=== PATIENT | female | born 1955 | race African-American/Black ===

== ENCOUNTER 2019-06-08 12:29 | Emergency (ER) | payer OTHER, SELFPAY ==
--- NOTE | ~2019-06-08 | XR_ITS ---
EXAMINATION: XR chest 2V DATE: 06/08/2019 13:01 INDICATION: Shortness of breath. Difficulty taking a deep breath. TECHNIQUE: frontal and lateral views of the chest were obtained. COMPARISON: None FINDINGS: The lungs are clear with no focal airspace opacities, pulmonary edema, pleural effusion or pneumothor ax. The cardiomediastinal silhouette is normal. Visualized bones and soft tissues are unremarkable. IMPRESSION: 1. No acute cardiopulmonary disease. Reviewed, dictated and finalized at location A.
[2019-06-08 12:45] VITALS: BP 124/73; PULSE 60; RESP 16; TEMP 36.4; O2SAT 100
--- NOTE | 2019-06-08 12:45 | ED.URI ---
HPI - URI/Sore Throat General Chief Complaint: Upper Respiratory Infection Stated Complaint: sore throat/SOB Time Seen by Provider: 06/08/19 12:45 Source: patient and RN notes reviewed History of Present Illness HPI Narrative: Patient is a 64-year-old female that presents the urgent care with complaints of shortness of breath and sore throat. Patient states that started approximately 1 week ago and now she has a hoarse voice. Patient states she has had a mild intermittent cough after taking [id number]-[id number] mucus production medication. Patient is continue taking her Claritin and Flonase as prescribed for seasonal allergies. Patient denies any known exposure to COVID and states that she has been remaining at home. Denies of any chest pain, fever, nausea, vomiting, body aches. States that she had chills a couple weeks ago but nothing persistent or consistent. Patient states that she has difficulty taking deep breaths. No other acute complaints. No acute distress noted. Patient read the plan of care. Related Data Home Medications Medication Instructions Recorded Confirmed aspirin 06/08/19 conjugated estrogens [Premarin] 06/08/19 ergocalciferol (vitamin D2) 06/08/19 fluticasone propionate INTRANASAL 06/08/19 gabapentin 06/08/19 hydrochlorothiazide 06/08/19 lisinopril 06/08/19 loratadine mg 06/08/19 magnesium oxide 06/08/19 nitroglycerin mg 06/08/19 potassium chloride meq PO 06/08/19 simvastatin mg 06/08/19 tramadol mg 06/08/19 Allergies Allergy/AdvReac Type Severity Reaction Status Date / Time No Known Allergies Allergy Mild Verified 05/03/16 13:27 Review of Systems Review of Systems: Narrative: CONSTITUTIONAL: Denies fever, chills, or sweats. EYES: Denies visual changes, redness, or discharge. ENT: Reports of sore throat CARDIOVASCULAR: Denies chest pain, palpitations, or edema. RESPIRATORY: Reports of dyspnea and difficulty taking deep breaths GASTROINTESTINAL: Denies abdominal pain, nausea, vomiting, or diarrhea. GENITOURINARY: Denies dysuria or hematuria. SKIN: Denies rash or itching. MUSCULOSKELETAL: Denies back pain, joint pain, or myalgia. NEUROLOGIC: Denies headache, numbness, or weakness. All other systems reviewed are negative, except as documented in HPI. PMFSH Social History Social History Smoking status: Never smoker Alcohol intake: current Comments At the time of my signature, I reviewed and agree with the nursing past medical, surgical, social, and family history. There is no relevant family history pertinent to the patient complaint. Exam Narrative: Exam Narrative: GENERAL: This is a well-nourished, well-developed patient, in no apparent distress. HEAD: normocephalic, atraumatic. EYES: PERRL. Sclera clear/white. Vision is grossly intact. EARS: External ears normal, auditory canals clear and without drainage, TMs normal without perforation. Hearing grossly intact. NOSE: External nose normal with no obvious nasal discharge, nares without redness, no rhinorrhea. THROAT: Mucous membranes moist, posterior pharynx clear. Mild postnasal drainage NECK: Neck supple CARDIOVASCULAR: Regular rate and rhythm without murmurs, gallops, or rubs. RESPIRATORY: Clear to auscultation. Very slightly diminished left upper SKIN: warm, intact with no suspicious lesions or rash, good texture and turgor. NEURO: awake, alert, and oriented to person, place and time. There were no obvious focal neurologic abnormalities. EXTREMITIES: No clubbing, cyanosis, or edema. Course Vital Signs Vital signs: Vital Signs Temperature 97.6 F 06/08/19 12:45 Pulse Rate 60 06/08/19 12:45 Respiratory Rate 16 06/08/19 12:45 Blood Pressure 124/73 06/08/19 12:45 Pulse Oximetry 100 06/08/19 12:45 Temperature 97.6 F 06/08/19 12:45 Pulse Rate 60 06/08/19 12:45 Respiratory Rate 16 06/08/19 12:45 Blood Pressure 124/73 06/08/19 12:45 Pulse Oximetry 100 06/08/19 12:45 Reviewed
== END 2019-06-08 13:34 | disposition home or self-care (01) ==
PROVIDERS: Emergency Provider Nurse Practitioner Family
DX: J02.9 Acute pharyngitis, unspecified (principal); R06.02 Shortness of breath
CPT/HCPCS: 71046; 99213; G0463

== ENCOUNTER 2020-08-02 09:56 | Emergency (ER) | payer OTHER, SELFPAY ==
[2020-08-02 10:07] VITALS: BP 127/73; PULSE 74; RESP 16; TEMP 36.6; O2SAT 99
--- NOTE | 2020-08-02 10:19 | ED.GENADULT ---
HPI - General Adult General Chief complaint: Upper Respiratory Infection Stated complaint: sinus infection Time Seen by Provider: 08/02/20 10:12 Source: patient and RN notes reviewed Mode of arrival: ambulatory Limitations: no limitations History of Present Illness HPI narrative: 65-year-old -[place] female presents with complaints of upper respiratory infection, sneezing, and some facial congestion for the past 14 days. Jeff reports symptoms increasing with productive cough over the past 3 days. Numerous [id number]-jul-[id number] medications and mucus pills without relief. ?No facial swelling.? Cough without chest congestion. ?Nasal congestion and rhinorrhea. ?Denies sore throat. No high fevers, drooling, neck or throat swelling. ?No voice change. ?No nausea, vomiting, or abdominal pain. Tolerating liquids well. ?Denies dyspnea, difficulty swallowing, jaw pain, dental pain, foreign body sensation, and rash. ?No chest pain or shortness of breath. ?Remains active. The patient reports she has not been diagnosed with COVID-19. The patient reports she received 2 Pfizer COVID-19 vaccines. The patient reports she is not waiting for the results of a COVID-19 lab test. The patient reports she does not have chills, weakness, fatigue, or myalgia. The patient reports she does not have any loss of taste and/or smell, and diarrhea. Denies concerns for COVID-19 or exposures. At this time, the patient is not suspected of having COVID-19. ? Some parts of this dictation were generated by voice recognition software and may contain typographical and/or grammatical inaccuracies. Related Data Home Medications Medication Instructions Recorded Confirmed aspirin 06/08/19 ergocalciferol (vitamin D2) 06/08/19 fluticasone propionate INTRANASAL 06/08/19 gabapentin 06/08/19 loratadine mg 06/08/19 magnesium oxide 06/08/19 nitroglycerin mg 06/08/19 potassium chloride meq PO 06/08/19 simvastatin mg 06/08/19 Adults Multivitamin 08/02/20 celecoxib mg 08/02/20 losartan-hydrochlorothiazide tablet 08/02/20 Allergies Allergy/AdvReac Type Severity Reaction Status Date / Time No Known Allergies Allergy Mild Verified 05/03/16 13:27 Review of Systems Review of Systems: Narrative: CONSTITUTIONAL: Denies fever, chills, sweats. EYES: Denies visual changes, redness, discharge. ENT: Complains of rhinorrhea, congestion. Denies otalgia, sore throat. CARDIOVASCULAR: Denies chest pain, palpitations, edema. RESPIRATORY: Denies dyspnea, wheezing. Complaints of cough. GASTROINTESTINAL: Denies abdominal pain, nausea, vomiting, diarrhea. SKIN: Denies rash or itching. MUSCULOSKELETAL: Denies acute back pain, joint pain, or myalgia. NEUROLOGIC: Denies numbness or focal weakness. PSYCHIATRIC: Denies anxiety or depression. All other systems reviewed & are unremarkable except as noted in HPI and below. [facility] Past Medical History Medical History (Updated 08/03/20 @ 00:01 by Prince Arnold) Burn Ex-smoker for more than 1 year Hypertension Surgical History Surgical History (Updated 08/02/20 @ 10:38 by RACHEL Sharpe) History of skin graft History of spinal surgery Family History Family History (Updated 08/02/20 @ 10:37 by RACHEL Sharpe) Father Diabetes mellitus Mother Hypertension Social History Social History (Updated 08/02/20 @ 10:36 by RACHEL Sharpe) Smoking status: Former smoker Tobacco type: cigarettes Second hand tobacco smoke exposure: No Smoking end date: 02/14/05 Alcohol intake: current Substance use: never Living arrangements: with family Occupation/Education: unemployed Gender identity (if verbalized by the patient): Female Comments At time of signature, agree with the nurse past medical, surgical, social, and family history. There is no relevant family history pertinent to the presenting complaint. Exam Narrative: Exam Narrative: GENERAL: This is a w
== END 2020-08-02 10:34 | disposition home or self-care (01) ==
PROVIDERS: Emergency Provider Nurse Practitioner Family
DX: J01.90 Acute sinusitis, unspecified (principal); Z87.891 Personal history of nicotine dependence; I10 Essential (primary) hypertension
CPT/HCPCS: 99213; G0463

== ENCOUNTER 2021-07-16 11:07 | Emergency (ER) | payer OTHER, SELFPAY ==
[2021-07-16 11:21] VITALS: BP 103/71; PULSE 67; RESP 16; TEMP 35.9; O2SAT 100
--- NOTE | 2021-07-16 11:21 | ED.GENADULT ---
HPI - General Adult General Chief complaint: Extremity Problem,Nontraumatic Stated complaint: Leg Spasm Time Seen by Provider: 07/16/21 11:21 Source: patient and RN notes reviewed Mode of arrival: ambulatory Limitations: no limitations History of Present Illness HPI narrative: 66-year-old female presents to the [facility] with complaints of muscle spasms right lower leg. States its been going on for several weeks, has an appointment with her primary care provider on August 06. Denies any trauma. No swelling. Has full range of motion. Discussed the muscles is extremely tight Related Data Home Medications Medication Instructions Recorded Confirmed aspirin 81 mg tablet,delayed 1 tablet PO DAILY 07/16/21 07/16/21 release ergocalciferol (vitamin D2) 1,250 1 cap PO WEEKLY 07/16/21 07/16/21 mcg (50,000 unit) capsule gabapentin 300 mg capsule 1 cap PO BID 07/16/21 07/16/21 losartan 100 1 tablet PO DAILY 07/16/21 07/16/21 mg-hydrochlorothiazide 12.5 mg tablet magnesium oxide 400 mg (241.3 mg 1 tablet PO DAILY 07/16/21 07/16/21 magnesium) tablet potassium chloride 10 mEq 1 tablet PO DAILY 07/16/21 07/16/21 tablet,extended release pregabalin 75 mg capsule 1 cap PO DAILY 07/16/21 07/16/21 simvastatin 80 mg tablet 1 tablet PO DAILY 07/16/21 07/16/21 umeclidinium 62.5 mcg-vilanterol ea inhalation 07/16/21 25 mcg/actuation powdr for inhalation (Anoro Ellipta) Allergies Allergy/AdvReac Type Severity Reaction Status Date / Time tramadol AdvReac Mild Hives Verified 07/16/21 11:27 Review of Systems Review of Systems: All systems reviewed & are unremarkable except as noted in HPI and below Constitutional: Constitutional: Reports no additional constitutional complaints, Denies chills and Denies fever(s) Eyes: Eyes: Reports no additional eye complaints ENT: Reports system reviewed and no additional complaints, except as documented Cardiovascular: Cardiovascular: Reports no additional cardiovascular complaints Respiratory: Respiratory: Reports no additional respiratory complaints Gastrointestinal: Gastrointestinal: Reports no additional gastrointestinal complaints Musculoskeletal: Musculoskeletal: Reports as per HPI and Reports muscle cramps (Right leg) Integumentary/Breasts: Skin/Breast: Reports system reviewed and no additional complaints, except as docu Neurologic: Reports system reviewed and no additional complaints, except as documented Psychiatric: Psychiatric: Reports no additional psychiatric complaints Allergic/Immunologic: Allergic/Immunologic: Reports no additional allergic/immunologic complaints PMFSH Past Medical History Medical History (Updated 07/16/21 @ 18:56 by Ya Long APRN) Chronic back pain High cholesterol History of high blood pressure Vitamin D deficiency Surgical History Surgical History Previous back surgery Social History Social History (Updated 07/16/21 @ 18:57 by Ya Long APRN) Gender identity (if verbalized by the patient): Female Comments At the time of my signature, I reviewed and agree with the nursing past medical, surgical, social, and family history. There is no relevant family history pertinent to the patient complaint. Exam Const: General: healthy appearing, no acute distress and alert Nutritional Appearance: well nourished Orientation/consciousness: patient oriented x3 Limitations: no limitations HENMT: Head: normal to inspection Ears: external ears normal Eyes: Pupils: Equal, round and reactive pupils present Neck: Neck: normal visual inspection, no lymphadenopathy and no meningeal signs Chest: Chest palpation & inspection: normal inspection of the chest Resp: Effort & Inspection: normal respiratory effort and no use of accessory muscles Auscultation: clear to auscultation bilaterally, no crackles, no rales, no rhonchi and no wheezes Cardio: Rate: regular rate Rhyt
== END 2021-07-16 11:33 | disposition home or self-care (01) ==
PROVIDERS: Emergency Provider Nurse Practitioner
DX: M62.838 Other muscle spasm (principal); E78.00 Pure hypercholesterolemia, unspecified; I10 Essential (primary) hypertension; Z79.82 Long term (current) use of aspirin
CPT/HCPCS: 99203; G0463

== ENCOUNTER 2021-11-18 12:38 | Emergency (ER) | payer OTHER, SELFPAY ==
[2021-11-18 12:45] VITALS: BP 113/66; PULSE 82; RESP 16; TEMP 35.6; O2SAT 100
--- NOTE | 2021-11-18 12:51 | ED.URI ---
HPI - URI/Sore Throat General Chief Complaint: Upper Respiratory Infection Stated Complaint: sore throat Time Seen by Provider: 11/18/21 13:20 Source: patient and RN notes reviewed Mode of arrival: ambulatory Limitations: no limitations History of Present Illness HPI Narrative: 66-year-old female presents with concern for sore throat. She reports several day history of sore throat that seem to worsen yesterday. She reports the sore throat is worse at night. She denies postnasal drainage, rhinorrhea, nasal congestion. She denies fever, bodies, chills, sweats. Reports she called her doctor today, he just called her in a [facility] which she is not picked up. MD elicited complaint: sore throat Related Data Home Medications Medication Instructions Recorded Confirmed fluticasone propionate 50 50 mcg intranasal DIRECTED 06/08/19 11/18/21 mcg/actuation nasal spray,suspension loratadine 10 mg tablet 10 mg PO DAILY 06/08/19 11/18/21 nitroglycerin 0.4 mg sublingual 0.4 mg sublingual DIRECTED 06/08/19 11/18/21 tablet Adults Multivitamin 08/02/20 celecoxib 200 mg capsule 200 mg PO DAILY 08/02/20 11/18/21 aspirin 81 mg tablet,delayed 1 tablet PO DAILY 07/16/21 11/18/21 release ergocalciferol (vitamin D2) 1,250 1 cap PO WEEKLY 07/16/21 11/18/21 mcg (50,000 unit) capsule gabapentin 300 mg capsule 1 cap PO BID 07/16/21 11/18/21 losartan 100 1 tablet PO DAILY 07/16/21 11/18/21 mg-hydrochlorothiazide 12.5 mg tablet magnesium oxide 400 mg (241.3 mg 1 tablet PO DAILY 07/16/21 11/18/21 magnesium) tablet potassium chloride 10 mEq 1 tablet PO DAILY 07/16/21 11/18/21 tablet,extended release pregabalin 75 mg capsule 1 cap PO DAILY 07/16/21 11/18/21 simvastatin 80 mg tablet 1 tablet PO DAILY 07/16/21 11/18/21 umeclidinium 62.5 mcg-vilanterol 1 inh inhalation DIRECTED 11/18/21 11/18/21 25 mcg/actuation powdr for inhalation (Anoro Ellipta) Allergies Allergy/AdvReac Type Severity Reaction Status Date / Time tramadol AdvReac Mild Hives Verified 11/18/21 12:55 Review of Systems Review of Systems: CONSTITUTIONAL: Denies malaise, chills, sweats, or fever. EYES: Denies visual changes, redness, or discharge. ENT: Denies rhinorrhea, congestion, sinus pain, otalgia. Reports sore throat. CARDIOVASCULAR: Denies chest pain, palpitations, or edema. RESPIRATORY: Denies cough. Denies dyspnea. GASTROINTESTINAL: Denies abdominal pain, nausea, vomiting, diarrhea SKIN: Denies rash or itching. MUSCULOSKELETAL: Denies myalgia. NEUROLOGIC: Denies headache. All systems reviewed & are unremarkable except as noted in HPI and below PMFSH Past Medical History Medical History (Updated 11/18/21 @ 13:17 by Ya Gonzalez NP) Burn Chronic back pain Ex-smoker for more than 1 year High cholesterol History of high blood pressure Hypertension Vitamin D deficiency Surgical History Surgical History Previous back surgery Family History Family History (System 10/27/21 @ 14:08 by Jarrell Edwards) Father Diabetes mellitus Mother Hypertension Social History Social History (System 10/27/21 @ 14:08 by Jarrell Edwards) Smoking status: Former smoker Tobacco type: cigarettes Second hand tobacco smoke exposure: No Smoking end date: 02/14/05 Alcohol intake: current Substance use: never Gender identity (if verbalized by the patient): Female Comments At time of signature, agree with nursing past medical, surgical, social and family history. There is no relevant family history pertinent to the presenting complaint Exam Narrative: GENERAL: Well-appearing, well-nourished, and in no acute distress. HEAD: Normocephalic EYES: PERRLA, conjunctivae clear ENT: Nares clear. Mucous membranes moist. TM pearly rivera with dull light reflex bilaterally; no tragal tenderness. Oropharynx erythematous without lesions. Tonsils not enlarged and without exudate,
== END 2021-11-18 13:21 | disposition home or self-care (01) ==
PROVIDERS: Emergency Provider Nurse Practitioner
DX: J06.9 Acute upper respiratory infection, unspecified (principal); Z87.891 Personal history of nicotine dependence; E78.00 Pure hypercholesterolemia, unspecified; I10 Essential (primary) hypertension; E55.9 Vitamin D deficiency, unspecified
CPT/HCPCS: 87081; 87880; 99213; G0463